=== PATIENT | male | born 1995 | race Caucasian/White ===

== ENCOUNTER → 2022-04-16 | Outpatient (CLI) | payer OTHER | LOC: M PLALAB 08:16 | PROVIDERS: ATTEND Psychiatry & Neurology Neurology | DX: Z13.79 Encounter for other screening for genetic and chromosomal anomalies (principal) ==

== ENCOUNTER → 2022-06-13 | Outpatient (CLI) | payer OTHER | LOC: M PLALAB 08:30 | PROVIDERS: ATTEND Psychiatry & Neurology Neurology | DX: G71.11 Myotonic muscular dystrophy (principal) ==

== ENCOUNTER 2024-04-12 13:06 | Emergency (ER) | payer OTHER ==
[~2024-04-12] VITALS: Ht 177.8 cm; Wt 84.4 kg
[2024-04-12 13:35] LABS: BASO % 0.4 % (0.0-1.0); EOS % 0.3 % (0.0-3.0); HEMATOCRIT 43.9 % (42.0-52.0); HEMOGLOBIN 15.7 g/dl (13.5-17.5); LYMPH # 1.2 10^3/uL (1.5-5.0); LYMPH % 14.8 % (24.0-44.0); MEAN CORPUSCULAR HEMOGLOBIN 32.4 pg (27.0-33.0); MEAN CORPUSCULAR HGB CONC 35.8 g/dl (32.0-36.5); MEAN CORPUSCULAR VOLUME 90.7 fl (80.0-96.0); MONO # 0.6 10^3/uL (0.0-0.8); MONO % 8.1 % (2.0-8.0); PLATELET COUNT, AUTOMATED 142 10^3/uL (150-450); RED BLOOD COUNT 4.84 10^6/uL (4.30-6.10); WHITE BLOOD COUNT 7.9 10^3/uL (4.0-10.0)
[2024-04-12 14:05] LABS: ALBUMIN 3.9 G/DL (3.2-5.2); BILIRUBIN,DIRECT 0.3 MG/DL (<0.4); BILIRUBIN,TOTAL 1.1 MG/DL (0.3-1.2); TOTAL PROTEIN 6.6 G/DL (5.7-8.2)
[2024-04-12] MEDS: ONDANSETRON 4MG 2ML VIAL IV ONE (14:11)
[2024-04-12] MEDS: MORPHINE 4 MG/ML 1ML VIAL IV ONE (14:11)
[2024-04-12] MEDS ORDERED: ISOVUE-370 76% 100ML VIAL As Ordered ONE (14:41)
[2024-04-12] MEDS: ACETAMINOPHEN *IV* 1,000 MG in IV 1 EA IV ONE (15:30)
[2024-04-12 16:14] VITALS: BP 130/72; TEMP 98.8; O2SAT 96
[2024-04-12 16:17] LABS: MONO REFLEX EBV COMP NEGATIVE (NEGATIVE)
[2024-04-12] MEDS ORDERED: PANT40TA29 PO (16:43)
[2024-04-12] MEDS ORDERED: SUCR1SS PO (16:43)
[2024-04-14 14:32] LABS: EBV AB TO NUCLEAR ANTIGEN > 600.00 U/mL (<18.00); EBV VIRAL CAPSID AG IGM < 36.00 U/mL (<36.00)
== END 2024-04-12 16:57 | disposition home or self-care (01) ==
LOC: M ED 13:06
DX: A08.4 Viral intestinal infection, unspecified (principal); R16.1 Splenomegaly, not elsewhere classified; F10.10 Alcohol abuse, uncomplicated; Z88.1 Allergy status to other antibiotic agents; Z79.899 Other long term (current) drug therapy
CPT/HCPCS: 74177; 80047; 80076; 81001; 83690; 85025; 86308; 86664; 86665; 96365; 96375; 99284; J0131; J2405; Q9967

== ENCOUNTER 2025-04-03 21:44 | Emergency (ER) | payer OTHER ==
[~2025-04-03] VITALS: Ht 177.8 cm; Wt 81.8 kg
[~2025-04-03 21:44] MED LIST: PANT40TA29 PO; SUCR1SS PO
[2025-04-04] MEDS: KETOROLAC 30 MG/ML 1 ML VIAL IV ONE (00:13)
[2025-04-04] MEDS: NS (Normal Saline) 0.9% 1,000 ML IV ONE (00:13)
[2025-04-04 00:35] LABS: BASO # 0.0 10^3/uL (0.0-0.2); BASO % 0.7 % (0.0-1.0); EOS # 0.0 10^3/uL (0.0-0.5); EOS % 0.0 % (0.0-3.0); LYMPH # 0.3 10^3/uL (1.5-5.0); LYMPH % 11.7 % (24.0-44.0); MONO # 0.4 10^3/uL (0.0-0.8); MONO % 13.2 % (2.0-8.0); NEUTROPHILS # 2.1 10^3/uL (1.5-8.5); NEUTROPHILS % 74.4 % (36.0-66.0); PLATELET COUNT, AUTOMATED 102 10^3/uL (150-450)
[2025-04-04 00:53] LABS: CALCIUM LEVEL 8.1 MG/DL (8.5-10.1); CARBON DIOXIDE LEVEL 26 MMOL/L (20-31); CHLORIDE LEVEL 103 MMOL/L (98-107); CREATININE FOR GFR 1.02 MG/DL (0.70-1.30); GLOMERULAR FILTRATION RATE > 90.0 (>60); POTASSIUM SERUM 4.2 MMOL/L (3.5-5.1); SODIUM LEVEL 140 MMOL/L (136-145)
[2025-04-04 01:05] LABS: MONO SCRN NEGATIVE (NEGATIVE)
[2025-04-04] MEDS ORDERED: DOXY-441 PO (01:27)
[2025-04-04 01:32] VITALS: BP 96/51; TEMP 99.9; O2SAT 96
[2025-04-04] MEDS: DOXYCYCLINE HYCLATE 100 MG TABLET PO ONE (01:38)
[2025-04-06 22:04] LABS: LYME TOTAL ANTIBODY CIA <= 0.90 Index (<=0.90)
== END 2025-04-04 01:42 | disposition home or self-care (01) ==
LOC: M ED 21:44
DX: J02.9 Acute pharyngitis, unspecified (principal); R51.9 Headache, unspecified; R50.9 Fever, unspecified; Z88.1 Allergy status to other antibiotic agents
CPT/HCPCS: 80048; 83605; 85025; 86308; 86618; 87486; 87581; 87633; 87798; 87880; 93041; 96361; 96374; 99284; J1885